=== PATIENT | female | born 1970 | race Hispanic/Latino ===

== ENCOUNTER 2016-06-15 04:42 | Observation (INO) | payer SELFPAY ==
[2016-06-15 06:12] LABS: Bilirubin,Urine NEG (Negative); Blood,Urine SM (Negative); Ketones,Urine TR mg/dL (Negative); Leukocyte Esterase,Urine NEG (Negative); Mucus,Urine FEW /HPF; Nitrite,Urine NEG (Negative); Protein,Urine <15 mg/dL mg/dL (Negative); Urobilinogen,Urine < 2.0 mg/dL (<2.0)
[2016-06-15 06:29] LABS: Alanine Aminotransferase 12 units/L (7-56); Albumin 3.9 g/dL (3.9-5); Albumin/Globulin Ratio 1.3 %; Alkaline Phosphatase 73 units/L (35-129); Bilirubin,Total 0.4 mg/dL (0.1-1.2); Blood Urea Nitrogen 10 mg/dL (7-17); Calcium 8.8 mg/dL (8.4-10.2); Carbon Dioxide 26 mmol/L (22-30); Chloride 102.3 mmol/L (98-107); Glucose 88 mg/dL (65-100); Lipase 30 units/L (13-60); Potassium 3.8 mmol/L (3.6-5.0); Sodium 141 mmol/L (137-145); Total Protein 6.9 g/dL (6.3-8.2)
[2016-06-15 06:30] LABS: Anion Gap 17 mmol/L; Basophils % (Auto) 0.4 % (0.0-1.8); Eosinophils % (Auto) 2.1 % (0.0-4.3); Hematocrit 32.4 % (30.3-42.9); Hemoglobin 10.1 gm/dl (10.1-14.3); Mean Corpuscular HGB Conc 31 % (30-34); Mean Corpuscular Hemoglobin 27 pg (28-32); Mean Corpuscular Volume 85 fl (79-97); Platelet Count 311 K/mm3 (140-440); Red Blood Count 3.82 M/mm3 (3.65-5.03); Red Cell Distribution Width 16.8 % (13.2-15.2); White Blood Count 6.9 K/mm3 (4.5-11.0)
[2016-06-15] MEDS ORDERED: NACL 0.9% 1000 ML 1,000 ML IV ONE (12:11)
[2016-06-15] MEDS ORDERED: MORPHINE IV ONE (12:11)
[2016-06-15] MEDS ORDERED: ZOFRAN IV ONE (12:11)
--- NOTE | 2016-06-15 12:12 | Emergency Department Report ---
ED Abdominal Pain HPI - General Chief Complaint: Abdominal Pain Stated Complaint: NAUSEA Time Seen by Provider: 06/15/16 12:04 Source: patient Mode of arrival: Ambulatory Limitations: No Limitations - History of Present Illness Initial Comments: this is a 45 y/o female previously unknown to me she has a past history of open abdominal surgery in 1992 for splenic cyst removal. also reports a history of chronic radicular pain, for which she sees dr mendez she complains of abdominal pain and swelling. The pain is sharp. It increases with palpation, and decreases with rest. Positive nausea, no vomiting. No irritative or obstructive urinary symptoms. No lower abdominal pain. Denies pelvic pain. Defecating normally. MD Complaint: abdominal pain Location: epigastric Radiation: back Severity: moderate Quality: aching Consistency: intermittent Improves With: rest Worsens With: movement Associated Symptoms: nausea - Related Data Previous Rx's Medication Instructions Recorded Last Taken Type Amlodipine Besylate [Norvasc] 2.5 mg PO DAILY #30 tab 10/02/15 Unknown Rx oxyCODONE /ACETAMINOPHEN [Percocet 1 tab PO Q6HR PRN #10 tablet 10/02/15 Unknown Rx 5/325] Allergies Allergy/AdvReac Type Severity Reaction Status Date / Time No Known Allergies Allergy Verified 10/02/15 08:27 ED Review of Systems ROS: Stated complaint: NAUSEA Other details as noted in HPI Constitutional: denies: malaise, weakness Eyes: denies: vision change ENT: denies: epistaxis Respiratory: denies: cough Gastrointestinal: abdominal pain, nausea Genitourinary: denies: urgency, dysuria, discharge Musculoskeletal: back pain Skin: denies: rash, lesions Neurological: denies: weakness Psychiatric: anxiety ED Past Medical Hx - Past Medical History Previous Medical History?: Yes Hx Hypertension: Yes (not on meds) Additional medical history: 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 tubes ligation - Social History Smoking Status: Former Smoker Substance Use Type: None, Prescribed - Medications Home Medications: Home Medications Medication Instructions Recorded Confirmed Last Taken Type Amlodipine Besylate [Norvasc] 2.5 mg PO DAILY #30 tab 10/02/15 Unknown Rx oxyCODONE /ACETAMINOPHEN [Percocet 1 tab PO Q6HR PRN #10 tablet 10/02/15 Unknown Rx 5/325] ED Physical Exam - General Limitations: No Limitations General appearance: alert, in no apparent distress - Head Head exam: Present: atraumatic, normocephalic - Eye Eye exam: Present: normal appearance - ENT ENT exam: Present: normal exam, normal orophraynx, mucous membranes moist, normal external ear exam - Neck Neck exam: Present: normal inspection, full ROM. Absent: tenderness, meningismus - Respiratory Respiratory exam: Present: normal lung sounds bilaterally. Absent: respiratory distress, wheezes, rales, rhonchi, stridor, chest wall tenderness - Cardiovascular Cardiovascular Exam: Present: regular rate, normal rhythm, normal heart sounds. Absent: bradycardia, tachycardia, irregular rhythm, systolic murmur, diastolic murmur, rubs, gallop - GI/Abdominal GI/Abdominal exam: Present: soft, tenderness, normal bowel sounds, hernia, other (there is a midline ventral hernia which is approximately 8 x 2 cm. It is nonreducible. It is tender. There is no lower abdominal pain, rebound, guarding or peritoneal signs.). Absent: distended, guarding, rebound, rigid - Extremities Exam Extremities exam: Present: normal inspection, full ROM, normal capillary refill. Absent: tenderness, pedal edema, joint swelling, calf tenderness - Back Exam Back exam: Present: normal inspection, full ROM. Absent: tenderness, CVA tenderness (R), CVA tenderness (L), muscle spasm, paraspinal tenderness, vertebral tenderness - Neurological Exam Neurological exam: Present: alert, oriented X3, normal gait, other (Extraocular movements intact. Tongue midline. No facial droop. Facial sensation intact to light touch in the V1, V2, V3 distribution bilaterally. 5 and 5 strength in 4 extremities.. Sensation is intact to light touch in 4 extremities.). Absent : motor sensory deficit - Psychiatric Psychiatric exam: Present: normal affect, normal mood - Skin Skin exam: Present: warm, dry, intact, normal color. Absent: rash ED Course Vital Signs 06/15/16 06/15/16 05:27 14:21 Temperature 97.9 F 98.6 F Pulse Rate 64 58 L Respiratory 20 16 Rate Blood Pressure 142/97 Blood Pressure 151/86 [Right] O2 Sat by Pulse 100 99 Oximetry - Reevaluation(s) Reevaluation #1: 06/15/16 14:37 Differential diagnosis: Incarcerated hernia, strangulated hernia Ct and plan: 45-year-old female with clinically incarcerated hernia, which is corroborated on CAT scan. She is afebrile with reassuring vital signs with the exception of slight hypertension. She has no lower abdominal pain, tenderness, rebound or guarding. The loculated fluid collection described and her CT scan I think is more incidental event causative of her symptoms. Case is discussed with the general surgeon, Dr. Tinajero, who is in the ER currently evaluating the patient, and will make further recommendations. Reevaluation #2: 06/15/16 14:44 Dr. Tinajero is going to take the patient to the operating room. He requested 2 g of Ancef. ED Medical Decision Making - Lab Data Result diagrams: 06/15/16 05:47 06/15/16 05:47 Vital Signs 06/15/16 06/15/16 05:27 14:21 Temperature 97.9 F 98.6 F Pulse Rate 64 58 L Respiratory 20 16 Rate Blood Pressure 142/97 Blood Pressure 151/86 [Right] O2 Sat by Pulse 100 99 Oximetry Lab Results 06/15/16 06/15/16 06/15/16 Range/Units 05:47 05:47 13:00 WBC 6.9 (4.5-11.0) K/mm3 RBC 3.82 (3.65-5.03) M/mm3 Hgb 10.1 (10.1-14.3) gm/dl Hct 32.4 (30.3-42.9) % MCV 85 (79-97) fl MCH 27 L (28-32) pg MCHC 31 (30-34) % RDW 16.8 H (13.2-15.2) % Plt Count 311 (140-440) K/mm3 Lymph % (Auto) 18.4 (13.4-35.0) % Bledsoe % (Auto) 9.1 H (0.0-7.3) % Eos % (Auto) 2.1 (0.0-4.3) % Baso % (Auto) 0.4 (0.0-1.8) % Lymph # 1.3 (1.2-5.4) K/mm3 Bledsoe # 0.6 (0.0-0.8) K/mm3 Eos # 0.1 (0.0-0.4) K/mm3 Baso # 0.0 (0.0-0.1) K/mm3 Seg Neutrophils % 70.0 (40.0-70.0) % Seg Neutrophils # 4.8 (1.8-7.7) K/mm3 Sodium 141 (137-145) mmol/L Potassium 3.8 (3.6-5.0) mmol/L Chloride 102.3 (98-107) mmol/L Carbon Dioxide 26 (22-30) mmol/L Anion Gap 17 mmol/L BUN 10 (7-17) mg/dL Creatinine 0.5 L (0.7-1.2) mg/dL Estimated GFR > 60 ml/min BUN/Creatinine Ratio 20.00 % Glucose 88 (65-100) mg/dL Lactic Acid 0.5 L (0.7-2.0) mmol/L Calcium 8.8 (8.4-10.2) mg/dL Total Bilirubin 0.4 (0.1-1.2) mg/dL AST 21 (5-40) units/L ALT 12 (7-56) units/L Alkaline Phosphatase 73 (35-129) units/L Total Protein 6.9 (6.3-8.2) g/dL Albumin 3.9 (3.9-5) g/dL Albumin/Globulin Ratio 1.3 % Lipase 30 (13-60) units/L Urine Color (Yellow) Urine Turbidity (Clear) Urine pH (5.0-7.0) Ur Specific [place] (1.003-1.030) Urine Protein (Negative) mg/dL Urine Glucose (UA) (Negative) mg/dL Urine Ketones (Negative) mg/dL Urine Blood (Negative) Urine Nitrite (Negative) Urine Bilirubin (Negative) Urine Urobilinogen (<2.0) mg/dL Ur Leukocyte Esterase (Negative) Urine WBC (Auto) (0.0-6.0) /HPF Urine RBC (Auto) (0.0-6.0) /HPF U Epithel Cells (Auto) (0-13.0) /HPF Urine Mucus /HPF 06/15/16 Range/Units Unknown WBC (4.5-11.0) K/mm3 RBC (3.65-5.03) M/mm3 Hgb (10.1-14.3) gm/dl Hct (30.3-42.9) % MCV (79-97) fl MCH (28-32) pg MCHC (30-34) % RDW (13.2-15.2) % Plt Count (140-440) K/mm3 Lymph % (Auto) (13.4-35.0) % Bledsoe % (Auto) (0.0-7.3) % Eos % (Auto) (0.0-4.3) % Baso % (Auto) (0.0-1.8) % Lymph # (1.2-5.4) K/mm3 Bledsoe # (0.0-0.8) K/mm3 Eos # (0.0-0.4) K/mm3 Baso # (0.0-0.1) K/mm3 Seg Neutrophils % (40.0-70.0) % Seg Neutrophils # (1.8-7.7) K/mm3 Sodium (137-145) mmol/L Potassium (3.6-5.0) mmol/L Chloride (98-107) mmol/L Carbon Dioxide (22-30) mmol/L Anion Gap mmol/L BUN (7-17) mg/dL Creatinine (0.7-1.2) mg/dL Estimated GFR ml/min BUN/Creatinine Ratio % Glucose (65-100) mg/dL Lactic Acid (0.7-2.0) mmol/L Calcium (8.4-10.2) mg/dL Total Bilirubin (0.1-1.2) mg/dL AST (5-40) units/L ALT (7-56) units/L Alkaline Phosphatase (35-129) units/L Total Protein (6.3-8.2) g/dL Albumin (3.9-5) g/dL Albumin/Globulin Ratio % Lipase (13-60) units/L Urine Color Yellow (Yellow) Urine Turbidity Clear (Clear) Urine pH 5.0 (5.0-7.0) Ur Specific [place] 1.014 (1.003-1.030) Urine Protein <15 mg/dl (Negative) mg/dL Urine Glucose (UA) Neg (Negative) mg/dL Urine Ketones Tr (Negative) mg/dL Urine Blood Sm (Negative) Urine Nitrite Neg (Negative) Urine Bilirubin Neg (Negative) Urine Urobilinogen < 2.0 (<2.0) mg/dL Ur Leukocyte Esterase Neg (Negative) Urine WBC (Auto) 1.0 (0.0-6.0) /HPF Urine RBC (Auto) 3.0 (0.0-6.0) /HPF U Epithel Cells (Auto) 1.0 (0-13.0) /HPF Urine Mucus Few /HPF - Radiology Data Radiology results: report reviewed, image reviewed CT scan of the abdomen and pelvis with IV contrast: There is no enlarged liver. Normal sized spleen with splenule in the adjacent region. Normal adrenals, kidney parenchyma and bladder. There is a loculated fluid collection probably a cyst in the left adnexa measuring 8.4 b 5.3 cm. There is no free peritoneal fluid there is no evidence of adenopathy. No evidence of diverticulitis or appendicitis. There is a ventral hernia noted containing omentum and not bowel. The narrow neck of the hernia is probably suggestive of incarcerated hernia. Y Critical care attestation.: If time is entered above; I have spent that time in minutes in the direct care of this critically ill patient, excluding procedure time. ED Disposition Clinical Impression: Incarcerated hernia Disposition: OP ADMITTED IP TO THIS HOSP Is pt being admited?: Yes Condition: Good Instructions: Abdominal Pain (ED)
[2016-06-15] MEDS ORDERED: NACL ONE (13:28)
--- NOTE | 2016-06-15 14:05 | Cat Scan Report ---
CT scan of abdomen and pelvis with IV contrast: History: Abdominal pain, incarcerated hernia. Findings: Normal lung bases. No pleural pericardial effusion. Enlarged liver measuring 24 cm in vertical diameter. Normal pancreas and gallbladder. Normal size spleen with splenule in the adjacent region. Normal adrenals kidney parenchyma and bladder. There is loculated fluid collection probably a cyst in the left adnexa measuring 8.4 cm x 5.3 cm. The No free duct peritoneal fluid or. No evidence of adenopathy. Gaseous colon with stool in colon. No evidence of appendicitis or diverticulitis. There is ventral hernia noted containing omentum and not bowel. Narrow neck of the hernia probably suggestive for incarcerated hernia.. The hernia is approximately 10 cm superior to the umbilicus. Impression: Ventral hernia containing omentum probably incarcerated. The Large left adnexal fluid collection probably ovarian cyst.
--- NOTE | 2016-06-15 15:14 | Anesthesia Consultation ---
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 Incarcerated hernia at the incision site
--- NOTE | 2016-06-15 15:15 | Anesthesia Day of Surgery ---
Anesthesia Day of Surgery - Day of Surgery Patient Examined: Yes Patient H&P Reviewed: Yes Patient is NPO: No (had contrast PO for CT study )
[2016-06-15] MEDS ORDERED: DIPRIVAN 10 MG/ML IV ONE (15:19)
[2016-06-15] MEDS ORDERED: DILAUDID ONE (15:19)
[2016-06-15] MEDS ORDERED: XYLOCAINE MPF 2% ONE (15:20)
[2016-06-15] MEDS ORDERED: LACTATED RINGERS 1,000 ML ONE (15:25)
--- NOTE | 2016-06-15 15:33 | Admit Criteria Form ---
Admission Criteria Documentation: ABDOMINAL PAIN Clinical Indications for Admission to Inpatient Care (Place 'X' for any and all applicable criteria): Admission is indicated for ANY ONE of the following(1)(2)(3)(4)(5): [X ]I. Inpatient admission required rather than observation care (Also use Abdominal Pain: Observation Care, as appropriate) because of ANY ONE of the following: [X ]a) Severe pain requiring acute inpatient management [ ]b) Identification of etiology/finding that requires inpatient care (eg, aortic dissection, free air) [ ]c) Absent bowel sounds with complete ileus(6) [ ]d) Suspected toxic megacolon [ ]e) Severe electrolyte abnormalities requiring inpatient care [ ]f) High fever or infection requiring inpatient admission as indicated by ANY ONE of following(7)(8): [ ] i) Appropriate outpatient or observational care antimicrobial treatment unavailable, not effective, or not feasible [ ] ii) Documented bacteremia [ ] iii) Temperature > 104.9 degrees F (oral) [ ] iv) T >103.1 F (oral) or < 96.8 F(rectal) that does not respond to all emergency treatment measures [ ]g) Signs of intestinal obstruction [B] [ ]h) Hemodynamic instability [ ]i) IV fluid to replace significant ongoing losses (greater than 3 L/m2 per day) (12)(13) [ ]j) Percutaneous or open drainage (eg, abscess, biliary tract ) procedures [ ]k) Parenteral nutrition regimen that must be implemented on inpatient basis [ ]l) Other condition,treatment or monitoring requiring inpatient admission. [ ]II. Peritoneal signs present [ X]III. Surgery needed that cannot be performed on an ambulatory basis. [ ]IV. Evaluation requires patient to not eat or drink for extended period ( eg, more than 24 hours). [ ]V. Contraindications and/or Inappropriate clinical situations for Observational Care in patients with abdominal pain, when ANY ONE of the following is required: [ ]a) Thorough evaluation is required to prevent catastrophic events due to delays in diagnosing (e.g.Mesenteric ischemia) 1,3 [ ]b) Patient with severe pathology or with chronic symptoms unlikely to improve in the ED stay (3) [ ]. General contraindications and/or Inappropriate clinical situations for Observational Care in patients with abdominal pain, when ANY ONE of the following is required: [ ]a) Prediction of prolongation of LOS based on ANY ONE of the following may be considered as a contraindication for observational care 2, 3, 4, 5, 6, 7, 8, 9, 10, 11 [ ]i) Age > 65 yrs. [ ]ii) Patient arriving by ambulance [ ]iii) Patient with high acuity [ ]iv) Patient requiring vital sign monitoring [ ]v) Patient on IV medication [ ]b) Systolic blood pressures 180mmHg 3,12 [ ]c) Patient with altered mental status including delirium and other alteration of consciousness, (3) [ ]d) Patient whose discharge disposition will be to a penitentiary home or rehabilitation home should not be managed in Emergency Department Observation Unit. CMS rule requires 3 days hospital stay before such placement.3,13 [ ]e) Patient with failure to thrive due to broad array of etiologies 3,16,17 [ ]f) Inability to ambulate 3,14 Extended stay beyond goal length of stay may be needed for(2)(3): [ ]a) Persistent abdominal pain with suspected intra-abdominal process [ ]b) Diagnosed condition requiring continued stay (e.g., pancreatitis, complicated diverticulitis) [ ]c) Surgery (e.g., colectomy) The original [facility] content created by [employer] has been revised. The portions of the content which have been revised are identified through the use of italic text or in bold, and [facility] has neither reviewed nor approved the modified material.All other unmodified content is copyright [facility]. Please see references footnoted in the original [facility] edition 2016 Admission Criteria Met: Yes
[2016-06-15] MEDS ORDERED: ceFAZolin 2 GM in NACL 0.9% 100 ML IV ONE (15:45)
[2016-06-15] MEDS ORDERED: ANCEF/STERILE WATER 2 GM/20 ML 20 ML IV ONE (15:45)
[2016-06-15] MEDS ORDERED: PEPCID IV NR (16:00)
[2016-06-15] MEDS ORDERED: LACTATED RINGERS 1,000 ML IV SCH (16:00)
[2016-06-15] MEDS ORDERED: VERSED IV NR (16:00)
[2016-06-15] MEDS ORDERED: NACL 0.9% IR ONE (16:11)
--- NOTE | 2016-06-15 16:13 | History and Physical Report ---
HISTORY OF PRESENT ILLNESS: This patient was seen in the ER this morning. She is a 45-year-old white female who has been having severe pain to the epigastrium, nausea and vomiting of about six week's duration, but it has been a very bad in the last 2 days. She gives a history of a huge spleen that was taken out many years back and she told me that it was about 7 pounds with a huge cyst in the area. She has been doing fairly well. She has been having that pain in the epigastrium for quite a while now. It is becoming much worse and this was seen on CAT scan today with incarcerated hernia. The defect to me is about 4 x 4 cm, located just in the midepigastric area. She had nausea. She had vomiting. She is not allergic to any medicines. PHYSICAL EXAMINATION: GENERAL: A well preserved morbidly obese white female. She is in no distress. She is in pain, however, to the area. HEAD AND NECK: Negative. CHEST: Clear. HEART: Sounds normal. BREASTS: Symmetric. No evidence of specific masses. ABDOMEN: Protuberant, soft, benign; however in the midepigastric area, there is a firm mass that to me is about 10 x 10 cm, located right in the mid epigastric aspect. Severely tender. EXTREMITIES: No edema. IMPRESSION: Incarcerated epigastric hernia seen on the CAT scan Dr. Petersen our radiologist. JOB# [id number] YIFAN/ED
[2016-06-15] MEDS ORDERED: DECADRON ONE (16:27)
[2016-06-15] MEDS ORDERED: ZOFRAN ONE (16:27)
[2016-06-15] MEDS: DILAUDID IV PRN ×2 (16:50→17:08)
[2016-06-15] MEDS ORDERED: D5W/0.45% NACL/KCL 20 MEQ 1,000 ML IV SCH (17:00)
--- NOTE | 2016-06-15 17:37 | Post Anesthesia Evaluation ---
- Post Anesthesia Evaluation Patient Participated: Yes Airway Patent: Yes Stable Respiratory Function: Yes Nausea/Vomiting: No Temp > 96.8F: Yes Pain Manageable: Yes Adequeate Hydration: Yes Anesthesia Complications: No Block Receding Appropriately: Not Applicable Patient on Ventilator: No
--- NOTE | 2016-06-15 18:39 | Operative Report ---
PREOPERATIVE DIAGNOSIS: Incarcerated epigastric hernia. 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 SURGERY: Exploration of the epigastric area with partial omentectomy for incarcerated omentum and repair of hernia. We did not use a graft there because the area is severely edematous. ANESTHESIA: General. BLOOD LOSS: Minimal. FINDINGS: The patient had a defect in the midepigastric area that to me measured about 3 x 3 x 3 cm with omentum stuck into it. I was able to dissect the omentum completely. I had to resect a portion of it and the rest of the tissue was delivered within the abdominal cavity. DESCRIPTION OF PROCEDURE: With the patient in supine position, prepped and draped in usual fashion. I made a midline incision over the mass in the midepigastrium deep subcutaneous tissue. I was able to reach the mass. The mass was mainly omentum. This was dissected completely free. I had to suture ligate using for that purpose 2-0 Ethibond and at that point, we had good hemostasis. Then, the fascia was approximated using 0 Ethibond interrupted [id number] and subcutaneous tissues using 2-0 Vicryl and skin closed with michelle. The patient was then transferred to the recovery room in good condition. We will plan to have her go home tomorrow, already provided her prescription for Vicodin. I did indicate to her that she would need to be off work for a good 10 to 15 days. DIET: Ad-allie. JOB# [id number] YIFAN/ED
[2016-06-15] MEDS: MORPHINE IV PRN (20:01)
[2016-06-15] MEDS ORDERED: PEPCID IV SCH (22:00)
[2016-06-15] MEDS ORDERED: ANCEF/NS 1 GM/50 ML 50 ML IV SCH (23:30)
[2016-06-16] MEDS: MORPHINE IV PRN (00:10)
[2016-06-16 16:35] VITALS: BP 139/60
== END 2016-06-16 14:45 | disposition home or self-care (01) ==
LOC: OR 04:42 → ED 04:42 → EDSTATUS 15:35 → 2B-SURG 16:46
PROVIDERS: ADMIT Surgery; ATTEND Surgery
DX: K43.6 Other and unspecified ventral hernia with obstruction, without gangrene (principal); Z90.81 Acquired absence of spleen
CPT/HCPCS: 36415; 49653; 74177; 80053; 81001; 81025; 82140; 83690; 85025; 88305; 96365; 96375; 96376; 99285; G0378; J0690; J1100; J1170; J2250; J2270; J2405; J2704; J7030; J7120; Q9967

== ENCOUNTER 2016-10-20 10:57 | Emergency (ER) | payer SELFPAY ==
--- NOTE | 2016-10-20 11:53 | Emergency Department Report ---
Chief Complaint: Abdominal Pain Stated Complaint: RT SIDE PAIN Time Seen by Provider: 10/20/16 11:46 - HPI History of Present Illness: PT c/o RUQ abd pain, gradual onset, worse this morning. PT states her younger sister was just dx with "gallbladder sludge" hx of hernia repair 06-16-16 - ROS Review of Systems: + abd pain worse after eating + nausea - sob - cp - Exam Physical Exam: PT looks well, non toxic abd soft, RUQ ttp MSE screening note: Focused history and physical exam performed. Due to findings the following was ordered: labs, us ED Disposition for MSE Condition: Stable
[2016-10-20 12:26] LABS: Alanine Aminotransferase 8 units/L (7-56); Albumin/Globulin Ratio 1.3 %; Alkaline Phosphatase 79 units/L (35-129); Anion Gap 17 mmol/L; Basophils % (Auto) 0.3 % (0.0-1.8); Blood Urea Nitrogen 11 mg/dL (7-17); Calcium 9.4 mg/dL (8.4-10.2); Carbon Dioxide 24 mmol/L (22-30); Chloride 101.4 mmol/L (98-107); Eosinophils % (Auto) 0.7 % (0.0-4.3); Glucose 87 mg/dL (65-100); Hemoglobin 10.9 gm/dl (10.1-14.3); Lipase 26 units/L (13-60); Mean Corpuscular HGB Conc 32 % (30-34); Mean Corpuscular Hemoglobin 27 pg (28-32); Mean Corpuscular Volume 85 fl (79-97); Platelet Count 293 K/mm3 (140-440); Potassium 3.8 mmol/L (3.6-5.0); Red Blood Count 4.02 M/mm3 (3.65-5.03); Red Cell Distribution Width 19.3 % (13.2-15.2); Sodium 139 mmol/L (137-145); White Blood Count 10.3 K/mm3 (4.5-11.0)
--- NOTE | 2016-10-20 12:51 | Ultrasound Report ---
RIGHT UPPER QUADRANT ULTRASOUND: HISTORY: Right upper quadrant abdominal pain. Technique: Transabdominal ultrasound imaging with Doppler interrogation. FINDINGS: A large shadowing gallstone measuring up to 2 cm is identified within the gallbladder. No evidence for gallbladder distention, wall thickening or surrounding fluid. The CBD measures 4 mm. Images of the liver parenchyma, pancreas, right kidney and aorta are within normal limits. No perihepatic ascites. IMPRESSION: Large gallstone. No evidence for acute cholecystitis.
[2016-10-20 13:13] LABS: Bilirubin,Urine NEG (Negative); Blood,Urine NEG (Negative); Ketones,Urine NEG (Negative); Leukocyte Esterase,Urine NEG (Negative); Mucus,Urine FEW /HPF; Nitrite,Urine NEG (Negative); Protein,Urine <15 mg/dL mg/dL (Negative); RBC,Urine < 1.0 /HPF (0.0-6.0); Urobilinogen,Urine < 2.0 mg/dL (<2.0); WBC,Urine < 1.0 /HPF (0.0-6.0)
[2016-10-21] MEDS ORDERED: ZOFRAN ODT PO ONE (04:06)
[2016-10-21] MEDS ORDERED: MORPHINE IM ONE (04:06)
--- NOTE | 2016-10-21 04:43 | Emergency Department Report ---
ED Abdominal Pain HPI - General Chief Complaint: Abdominal Pain Stated Complaint: RT SIDE PAIN Time Seen by Provider: 10/20/16 11:46 Source: patient Mode of arrival: Ambulatory Limitations: No Limitations - History of Present Illness Initial Comments: 46 year old female with past medical history of high blood pressure presenting to the emergency room complaining of right upper quadrant abdominal pain. Patient states she noticed pain about a week ago however has been increasing intensity. Pain is nonradiating. Pain is worse with food, improves when she is not eating. Pertinent negatives: Fever/chills, chest pain, vomiting, diarrhea, bloody stools. MD Complaint: abdominal pain -: Gradual Location: RUQ Radiation: none Migration to: no migration Severity scale (0 -10): 6 Consistency: intermittent Improves With: nothing Worsens With: eating Associated Symptoms: nausea. denies: vomiting, diarrhea, constipation, hematemesis - Related Data Previous Rx's Medication Instructions Recorded Last Taken Type oxyCODONE /ACETAMINOPHEN [Percocet 1 tab PO Q6HR PRN #10 tablet 10/02/15 Unknown Rx 5/325] Amlodipine Besylate [Norvasc] 2.5 mg PO DAILY #30 tab 10/21/16 Unknown Rx Ibuprofen [Motrin 800 MG tab] 800 mg PO Q8HR PRN #30 tablet 10/21/16 Unknown Rx Ondansetron [Zofran Odt] 4 mg PO Q6HR #20 tab.rapdis 10/21/16 Unknown Rx oxyCODONE /ACETAMINOPHEN [Percocet 1 tab PO Q4HR #20 tab 10/21/16 Unknown Rx 5/325] Allergies Allergy/AdvReac Type Severity Reaction Status Date / Time No Known Allergies Allergy Verified 10/20/16 11:46 ED Review of Systems ROS: Stated complaint: RT SIDE PAIN Other details as noted in HPI Constitutional: denies: chills, fever Eyes: denies: eye pain, eye discharge, vision change ENT: denies: ear pain, throat pain Respiratory: denies: cough, shortness of breath, wheezing Cardiovascular: denies: chest pain, palpitations Endocrine: no symptoms reported Gastrointestinal: abdominal pain Genitourinary: denies: urgency, dysuria, discharge Musculoskeletal: denies: back pain, joint swelling, arthralgia Skin: denies: rash, lesions Neurological: denies: headache, weakness, paresthesias Psychiatric: denies: anxiety, depression Hematological/Lymphatic: denies: easy bleeding, easy bruising ED Past Medical Hx - Past Medical History Hx Hypertension: Yes Additional medical history: 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 tubal ligation. hernia repair - Social History Smoking Status: Former Smoker Substance Use Type: Alcohol, Prescribed - Medications Home Medications: Home Medications Medication Instructions Recorded Confirmed Last Taken Type oxyCODONE /ACETAMINOPHEN [Percocet 1 tab PO Q6HR PRN #10 tablet 10/02/15 Unknown Rx 5/325] Amlodipine Besylate [Norvasc] 2.5 mg PO DAILY #30 tab 10/21/16 Unknown Rx Ibuprofen [Motrin 800 MG tab] 800 mg PO Q8HR PRN #30 tablet 10/21/16 Unknown Rx Ondansetron [Zofran Odt] 4 mg PO Q6HR #20 tab.rapdis 10/21/16 Unknown Rx oxyCODONE /ACETAMINOPHEN [Percocet 1 tab PO Q4HR #20 tab 10/21/16 Unknown Rx 5/325] ED Physical Exam - General Limitations: No Limitations General appearance: alert, in no apparent distress - Head Head exam: Present: atraumatic, normocephalic - Eye Eye exam: Present: normal appearance - ENT ENT exam: Present: mucous membranes moist - Neck Neck exam: Present: normal inspection - Respiratory Respiratory exam: Present: normal lung sounds bilaterally. Absent: respiratory distress - Cardiovascular Cardiovascular Exam: Present: regular rate, normal rhythm. Absent: systolic murmur, diastolic murmur, rubs, gallop - GI/Abdominal GI/Abdominal exam: Present: soft, normal bowel sounds. Absent: distended, tenderness, guarding, rebound - Extremities Exam Extremities exam: Present: normal inspection - Back Exam Back exam: Present: normal inspection - Neurological Exam Neurological exam: Present: alert, oriented X3 - Psychiatric Psychiatric exam: Present: normal affect, normal mood - Skin Skin exam: Present: warm, dry, intact, normal color. Absent: rash ED Course Vital Signs 10/20/16 10/20/16 10/21/16 11:49 19:43 02:22 Temperature 98.1 F 98.9 F Pulse Rate 56 L 61 59 L Respiratory 17 12 13 Rate Blood Pressure 178/106 154/101 O2 Sat by Pulse 100 99 100 Oximetry 10/21/16 10/21/16 10/21/16 02:30 03:00 03:30 Temperature Pulse Rate 53 L 54 L 61 Respiratory 18 18 17 Rate Blood Pressure 163/82 139/84 131/89 O2 Sat by Pulse 100 99 100 Oximetry ED Medical Decision Making - Lab Data Result diagrams: 10/20/16 11:58 10/20/16 11:58 - Medical Decision Making 46 year old female with past medical history of hypertension presenting to the emergency department complaining of abdominal pain. Pain likely secondary to gallstones. Patient states symptoms have improved while in the ER and she is stable to DC home. Repeat abdominal exam: soft nontender, patient tolerating by mouth liquids, and well-appearing. I have low suspicion for: UTI, appendicitis, small bowel obstruction Critical Care Time: No Critical care attestation.: If time is entered above; I have spent that time in minutes in the direct care of this critically ill patient, excluding procedure time. ED Disposition Clinical Impression: Gallstones, Hypertension Disposition: DC-01 TO HOME OR SELFCARE Is pt being admited?: No Does the pt Need Aspirin: No Condition: Stable Instructions: Abdominal Pain (ED), Hypertension (ED) Additional Instructions: gallstones Prescriptions: Amlodipine Besylate [Norvasc] 2.5 mg PO DAILY #30 tab Ibuprofen [Motrin 800 MG tab] 800 mg PO Q8HR PRN #30 tablet PRN Reason: Pain , Severe (7-10) Ondansetron [Zofran Odt] 4 mg PO Q6HR #20 tab.rapdis oxyCODONE /ACETAMINOPHEN [Percocet 5/325] 1 tab PO Q4HR #20 tab Referrals: DORIE MARIE MD [Primary Care Provider] - 3-5 Days AMILCAR ELZIABETH MD [Staff Physician] - 3-5 Days Time of Disposition: 04:50
[2016-10-21] MEDS ORDERED: PERCOCET 5/325 PO ONE (05:02)
[2016-10-21 05:20] VITALS: BP 157/94
== END 2016-10-21 05:00 | disposition home or self-care (01) ==
LOC: ED 10:57
DX: K80.80 Other cholelithiasis without obstruction (principal); I10 Essential (primary) hypertension; Z87.891 Personal history of nicotine dependence
CPT/HCPCS: 36415; 76705; 80053; 81001; 83690; 84703; 85025; 96372; 99284; J2270; Q0162

== ENCOUNTER 2017-01-18 15:53 | Emergency (ER) | payer SELFPAY ==
[2017-01-18 16:27] VITALS: BP 159/95
--- NOTE | 2017-01-18 16:29 | Emergency Department Report ---
Chief Complaint: Abdominal Pain Stated Complaint: GALLBLADDER Time Seen by Provider: 01/18/17 16:26 - HPI History of Present Illness: PT c/o R upper quad abd pain x 4 days, hx of gallstones - ROS Review of Systems: decrease po intake - vomiting + RUQ tenderness - Exam Vital Signs: Vital Signs 01/18/17 16:24 Temperature 98.4 F Pulse Rate 62 Respiratory 16 Rate Blood Pressure 159/95 O2 Sat by Pulse 100 Oximetry Physical Exam: PT looks well, non toxic abd soft mild RUQ tenderness MSE screening note: Focused history and physical exam performed. Due to findings the following was ordered: ED Disposition for MSE Condition: Stable Instructions: Abdominal Pain (ED)
[2017-01-18 16:42] LABS: Basophils % (Auto) 0.4 % (0.0-1.8); Eosinophils % (Auto) 0.6 % (0.0-4.3); Hematocrit 37.1 % (30.3-42.9); Hemoglobin 11.8 gm/dl (10.1-14.3); Mean Corpuscular HGB Conc 32 % (30-34); Mean Corpuscular Hemoglobin 29 pg (28-32); Mean Corpuscular Volume 91 fl (79-97); Platelet Count 265 K/mm3 (140-440); Red Blood Count 4.05 M/mm3 (3.65-5.03); Red Cell Distribution Width 17.7 % (13.2-15.2); White Blood Count 9.8 K/mm3 (4.5-11.0)
[2017-01-18 16:57] LABS: Alanine Aminotransferase 9 units/L (7-56); Albumin 4.2 g/dL (3.9-5); Albumin/Globulin Ratio 1.3 %; Alkaline Phosphatase 86 units/L (35-129); Anion Gap 19 mmol/L; Blood Urea Nitrogen 11 mg/dL (7-17); Calcium 9.6 mg/dL (8.4-10.2); Carbon Dioxide 24 mmol/L (22-30); Chloride 100.7 mmol/L (98-107); Glucose 92 mg/dL (65-100); Lipase 35 units/L (13-60); Potassium 3.7 mmol/L (3.6-5.0); Sodium 140 mmol/L (137-145); Total Protein 7.4 g/dL (6.3-8.2)
[2017-01-18 16:57] LABS: Bacteria,Urine 1+ /HPF (Negative); Bilirubin,Urine NEG (Negative); Blood,Urine NEG (Negative); Ketones,Urine NEG (Negative); Leukocyte Esterase,Urine NEG (Negative); Mucus,Urine FEW /HPF; Nitrite,Urine NEG (Negative); Protein,Urine <15 mg/dL mg/dL (Negative); Urobilinogen,Urine < 2.0 mg/dL (<2.0); WBC,Urine < 1.0 /HPF (0.0-6.0)
== END 2017-01-18 16:27 | disposition left against medical advice (07) ==
LOC: ED 15:53
DX: R10.11 Right upper quadrant pain (principal); Z53.21 Procedure and treatment not carried out due to patient leaving prior to being seen by health care provider
CPT/HCPCS: 36415; 80053; 81001; 83690; 85025

== ENCOUNTER 2017-04-08 10:58 | Emergency (ER) | payer SELFPAY ==
[2017-04-08 11:49] LABS: Basophils % (Auto) 0.4 % (0.0-1.8); Eosinophils % (Auto) 0.4 % (0.0-4.3); Hemoglobin 12.5 gm/dl (10.1-14.3); Mean Corpuscular HGB Conc 31 % (30-34); Mean Corpuscular Hemoglobin 30 pg (28-32); Mean Corpuscular Volume 94 fl (79-97); Platelet Count 317 K/mm3 (140-440); Red Blood Count 4.25 M/mm3 (3.65-5.03); Red Cell Distribution Width 16.1 % (13.2-15.2); White Blood Count 9.2 K/mm3 (4.5-11.0)
[2017-04-08 12:07] LABS: Alanine Aminotransferase 10 units/L (7-56); Albumin 4.1 g/dL (3.9-5); Albumin/Globulin Ratio 1.3 %; Alkaline Phosphatase 87 units/L (35-129); Anion Gap 19 mmol/L; BUN/Creatinine Ratio 23; Blood Urea Nitrogen 14 mg/dL (7-17); Calcium 9.2 mg/dL (8.4-10.2); Carbon Dioxide 23 mmol/L (22-30); Chloride 101.3 mmol/L (98-107); Glucose 90 mg/dL (65-100); Lipase 62 units/L (13-60); Potassium 3.6 mmol/L (3.6-5.0); Sodium 140 mmol/L (137-145); Total Protein 7.2 g/dL (6.3-8.2)
[2017-04-08 12:16] LABS: Bacteria,Urine 1+ /HPF (Negative); Bilirubin,Urine MOD (Negative); Blood,Urine NEG (Negative); Ketones,Urine TR mg/dL (Negative); Leukocyte Esterase,Urine NEG (Negative); Mucus,Urine 2+ /HPF; Nitrite,Urine NEG (Negative); Protein,Urine <15 mg/dL mg/dL (Negative); Urobilinogen,Urine < 2.0 mg/dL (<2.0)
[2017-04-08] MEDS ORDERED: SUBLIMAZE IV PRN (17:40)
[2017-04-08] MEDS ORDERED: BENTYL IM ONE (17:40)
[2017-04-08] MEDS ORDERED: ZOFRAN IV ONE (17:40)
[2017-04-08] MEDS ORDERED: TORADOL IV ONE (17:41)
--- NOTE | 2017-04-08 17:46 | Emergency Department Report ---
HPI - General Chief Complaint: Abdominal Pain Time Seen by Provider: 04/08/17 17:30 - HPI HPI: Room 10 The patient is a 46-year-old female presenting with a chief complaint of abdominal pain. Patient states she has a known history of cholelithiasis states yesterday during she developed some nausea despite attempting to choose her dishes carefully. The patient states this morning at 07:00 after eating hash brown she developed pain and right upper quadrant felt like her gallbladder. Patient states pain has been constant and aching in nature. Patient continues to have nausea vomiting. Patient states she has some diarrhea yesterday. Patient denies any history of fever Location: Abdomen Duration: Constant since 07:00 Quality: Sharp Severity:12/23 Modifying factors: [see above] Context: [see above] Mode of transportation: The patient drove herself to the emergency department and there are no visit is currently present. The patient states she will call her who can be here in approximately [address] her home if she is administered narcotic pain medication ED Past Medical Hx - Past Medical History Hx Hypertension: Yes Additional medical history: Gallstones - Surgical History Additional Surgical History: splenectomy. tubal ligation. hernia repair - Family History Family history: no significant - Social History Smoking Status: Never Smoker Substance Use Type: None (denies illicit drug use), Alcohol (occasional) - Medications Home Medications: Home Medications Medication Instructions Recorded Confirmed Last Taken Type oxyCODONE /ACETAMINOPHEN [Percocet 1 tab PO Q6HR PRN #10 tablet 10/02/15 Unknown Rx 5/325] Amlodipine Besylate [Norvasc] 2.5 mg PO DAILY #30 tab 10/21/16 Unknown Rx Ibuprofen [Motrin 800 MG tab] 800 mg PO Q8HR PRN #30 tablet 10/21/16 Unknown Rx Ondansetron [Zofran Odt] 4 mg PO Q6HR #20 tab.rapdis 10/21/16 Unknown Rx oxyCODONE /ACETAMINOPHEN [Percocet 1 tab PO Q4HR #20 tab 10/21/16 Unknown Rx 5/325] Dicyclomine [Bentyl] 20 mg PO QID #30 tablet 04/08/17 Unknown Rx HYDROcodone/APAP 5-325 [[place] 1 - 2 each PO Q6HR PRN #14 tablet 04/08/17 Unknown Rx 5/325] ED Review of Systems ROS: Stated complaint: VOMITING Other details as noted in HPI Constitutional: denies: fever Gastrointestinal: abdominal pain, nausea, vomiting, diarrhea Physical Exam - Physical Exam Vital Signs: Vital Signs 04/08/17 11:08 Temperature 97.8 F Pulse Rate 61 Respiratory 18 Rate Blood Pressure 172/102 O2 Sat by Pulse 99 Oximetry Physical Exam: GENERAL: The patient is well-developed well-nourished female lying on stretcher not appearing to be in acute distress. [] HEENT: Normocephalic. Atraumatic. Extraocular motions are intact. Patient has moist mucous membranes. NECK: Supple. Trachea midline CHEST/LUNGS: Clear to auscultation. There is no respiratory distress noted. HEART/CARDIOVASCULAR: Regular. There is no tachycardia. There is no gallop rub or murmur. ABDOMEN: Abdomen is soft, with tenderness to palpation in the right upper quadrant and right lower quadrant. There is no rebound or guarding. Patient has normal bowel sounds. There is no abdominal distention. SKIN: There is no rash. There is no edema. There is no diaphoresis. NEURO: The patient is awake, alert, and oriented. The patient is cooperative. The patient has normal speech MUSCULOSKELETAL: There is no evidence of acute injury. ED Course Vital Signs 04/08/17 11:08 Temperature 97.8 F Pulse Rate 61 Respiratory 18 Rate Blood Pressure 172/102 O2 Sat by Pulse 99 Oximetry ED Medical Decision Making - Lab Data Result diagrams: 04/08/17 11:15 04/08/17 11:15 Laboratory Tests 04/08/17 04/08/17 04/08/17 11:15 11:15 11:31 WBC 9.2 RBC 4.25 Hgb 12.5 Hct 40.0 MCV 94 MCH 30 MCHC 31 RDW 16.1 H Plt Count 317 Lymph % (Auto) 25.8 [place] % (Auto) 8.6 H Eos % (Auto) 0.4 Baso % (Auto) 0.4 Lymph # 2.4 [place] # 0.8 Eos # 0.0 Baso # 0.0 Seg Neutrophils % 64.8 Seg Neutrophils # 6.0 Sodium 140 Potassium 3.6 Chloride 101.3 Carbon Dioxide 23 Anion Gap 19 BUN 14 Creatinine 0.6 L Estimated GFR > 60 BUN/Creatinine Ratio 23 Glucose 90 Calcium 9.2 Total Bilirubin 0.30 AST 16 ALT 10 Alkaline Phosphatase 87 Total Protein 7.2 Albumin 4.1 Albumin/Globulin Ratio 1.3 Lipase 62 H Urine Color Yellow Urine Turbidity Clear Urine pH 5.0 Ur Specific [place] 1.049 H Urine Protein <15 mg/dl Urine Glucose (UA) Neg Urine Ketones Tr Urine Blood Neg Urine Nitrite Neg Urine Bilirubin Mod Urine Ictotest Negative Urine Urobilinogen < 2.0 Ur Leukocyte Esterase Neg Urine WBC (Auto) 2.0 Urine RBC (Auto) 3.0 U Epithel Cells (Auto) 34.0 H Urine Bacteria (Auto) 1+ Calcium Oxalate Crystal 3+ Urine Mucus 2+ - Radiology Data Radiology results: report reviewed (CT abdomen and pelvis, right upper quadrant ultrasound), image reviewed (CT abdomen and pelvis, right upper quadrant ultrasound) FINAL REPORT EXAM: CT ABDOMEN PELVIS W CON HISTORY: ruq, rlq, periumbilical abdominal pain TECHNIQUE: CT of the abdomen and pelvis was performed after the administration of intravenous contrast. Subsequently, CT of the abdomen and pelvis was performed in the delayed phase. Reconstructions were included in the coronal and sagittal planes. PRIORS: None. FINDINGS: Lower thorax: The lung bases are clear. The visualized portions of the heart are normal. Liver: The liver is normal in attenuation. No intrahepatic biliary duct dilation. No focal hepatic lesions. A large Viral lobe is seen. Contrast reflux is seen into the IVC and hepatic veins. Gallbladder/ biliary system: No cholelithiasis. The common bile duct appears nondilated. Spleen: No splenic lesions are seen. Pancreas: No pancreatic lesions are seen. No pancreatic duct dilation. Kidneys: No renal masses, cysts or hydronephrosis. Adrenal glands: No adrenal masses. Vasculature: The abdominal aorta is nondilated. Separate origins of the left gastric, common hepatic and splenic arteries are seen from the abdominal aorta. Lymph nodes: No enlarged lymph nodes are seen in the abdomen or pelvis. Bowel, mesentery, peritoneum: No bowel obstruction. No free fluid or free air. The appendix is normal. No colonic diverticulosis. There is wall thickening of the rectum and sigmoid colon. No surrounding inflammation is seen. A fatty lesion is seen within 1st portion of the duodenum likely representing a duodenal lipoma measuring 2.2 centimeters. Note that the cecum lies in the right upper quadrant. There is apparent thickening of the gastric pylorus. Urinary bladder: No filling defects are seen. Pelvis: There is a partially solid, partially cystic masslike lesion in the left hemipelvis measuring 7.5 centimeters transverse by 12.4 centimeters AP x 8.1 centimeters craniocaudal. This lesion exerts mass effect on the uterus. There is fluid within the endometrial canal. The right ovary appears normal. The left ovary is closely associated with the left pelvic mass. Abdominal wall: Nonspecific collateral vessels are seen along the anterior abdominal wall. Bones: Levo dextroscoliosis of the thoracolumbar spine is seen. Degenerative changes are seen within the spine. Bilateral L5 pars interarticularis defects are seen with grade 1 anterolisthesis of L5 on S1. IMPRESSION: 1. Large, heterogeneous left pelvic mass may arise from the left ovary. Recommend further evaluation with pelvic ultrasound. 2. Nonspecific wall thickening of the rectum and sigmoid colon. Recommend further evaluation with colonoscopy when feasible. 3. Duodenal lipoma. 4. Apparent wall thickening of the gastric pylorus. Consider further evaluation with EGD. 5. Contrast reflux into the IVC and hepatic veins can be associated with right heart strain. 6. Bilateral L5 pars interarticularis defects with grade 1 anterolisthesis of L5 on S1. Sandeep unexpected finding protocol was initiated. Transcribed By: MG Dictated By: DEE LYLES MD Electronically Authenticated By: DEE LYLES MD Signed Date/Time: 04/08/171606 DD/ 06 TD/TT: 04/08/171606 FINAL REPORT PROCEDURE: US ABDOMEN LIMITED TECHNIQUE: Real-time sonography was performed of the right upper quadrant with image documentation. CPT 77508 HISTORY: "gallbladder hurts" COMPARISON: No prior studies are available for comparison. FINDINGS: Pancreas is not well visualized due to bowel gas. Liver demonstrates slightly increased echotexture consistent with fatty infiltration. Gallbladder is well distended with normal outlines and normal wall thickness without any pericholecystic collections. A single freely mobile calculus measuring 2.5 centimeters is noted in the fundus. Common duct measures 3 millimeters in caliber. Right kidney measures 11 x 4 x 5 centimeters without calculi or hydronephrosis and demonstrates normal echotexture. Aorta measures 2.3 centimeters in the proximal portion in diameter.. IMPRESSION: Cholelithiasis without any sonographic evidence of cholecystitis. Fatty infiltration of liver. Transcribed By: [facility] [place] Dictated By: IWONA OROSCO Electronically Authenticated By: IWONA OROSCO Signed Date/Time: 04/08/171699 DD/ 99 TD/TT: 04/08/171699 - Differential Diagnosis symptomatic cholelithiasis, appendicitis, colitis, peptic ulcer disease Critical care attestation.: If time is entered above; I have spent that time in minutes in the direct care of this critically ill patient, excluding procedure time. ED Disposition Clinical Impression: Acute abdominal pain, Pelvic mass, Symptomatic cholelithiasis Disposition: TO HOME OR SELFCARE Is pt being admited?: No Does the pt Need Aspirin: No Condition: Stable Instructions: Abdominal Pain (ED) Additional Instructions: Return to the emergency department immediately should you develop worsening symptoms, fever, inability to tolerate food or liquid or any other concerns. Prescriptions: Dicyclomine [Bentyl] 20 mg PO QID #30 tablet HYDROcodone/APAP 5-325 [[place] 5/325] 1 - 2 each PO Q6HR PRN #14 tablet PRN Reason: Pain Referrals: PRIMARY CARE, [Primary Care Provider] - 3-5 Days AIMEE TEAGUE MD [Staff Physician] - 3-5 Days (Dr Teague is an [employer]. Please follow-up with him for further evaluation of your left pelvic mass) XUAN GALLARDO MD [Staff Physician] - 3-5 Days (Dr. Gallardo is a diesel powerplant mechanic. Please follow-up with him for further evaluation) Time of Disposition: 21:16
[2017-04-08] MEDS ORDERED: NACL ONE (18:15)
--- NOTE | 2017-04-08 20:10 | Cat Scan Report ---
FINAL REPORT EXAM: CT ABDOMEN PELVIS W CON HISTORY: ruq, rlq, periumbilical abdominal pain TECHNIQUE: CT of the abdomen and pelvis was performed after the administration of intravenous contrast. Subsequently, CT of the abdomen and pelvis was performed in the delayed phase. Reconstructions were included in the coronal and sagittal planes. PRIORS: None. FINDINGS: Lower thorax: The lung bases are clear. The visualized portions of the heart are normal. Liver: The liver is normal in attenuation. No intrahepatic biliary duct dilation. No focal hepatic lesions. A large Viral lobe is seen. Contrast reflux is seen into the IVC and hepatic veins. Gallbladder/ biliary system: No cholelithiasis. The common bile duct appears nondilated. Spleen: No splenic lesions are seen. Pancreas: No pancreatic lesions are seen. No pancreatic duct dilation. Kidneys: No renal masses, cysts or hydronephrosis. Adrenal glands: No adrenal masses. Vasculature: The abdominal aorta is nondilated. Separate origins of the left gastric, common hepatic and splenic arteries are seen from the abdominal aorta. Lymph nodes: No enlarged lymph nodes are seen in the abdomen or pelvis. Bowel, mesentery, peritoneum: No bowel obstruction. No free fluid or free air. The appendix is normal. No colonic diverticulosis. There is wall thickening of the rectum and sigmoid colon. No surrounding inflammation is seen. A fatty lesion is seen within 1st portion of the duodenum likely representing a duodenal lipoma measuring 2.2 centimeters. Note that the cecum lies in the right upper quadrant. There is apparent thickening of the gastric pylorus. Urinary bladder: No filling defects are seen. Pelvis: There is a partially solid, partially cystic masslike lesion in the left hemipelvis measuring 7.5 centimeters transverse by 12.4 centimeters AP x 8.1 centimeters craniocaudal. This lesion exerts mass effect on the uterus. There is fluid within the endometrial canal. The right ovary appears normal. The left ovary is closely associated with the left pelvic mass. Abdominal wall: Nonspecific collateral vessels are seen along the anterior abdominal wall. Bones: Levo dextroscoliosis of the thoracolumbar spine is seen. Degenerative changes are seen within the spine. Bilateral L5 pars interarticularis defects are seen with grade 1 anterolisthesis of L5 on S1. IMPRESSION: 1. Large, heterogeneous left pelvic mass may arise from the left ovary. Recommend further evaluation with pelvic ultrasound. 2. Nonspecific wall thickening of the rectum and sigmoid colon. Recommend further evaluation with colonoscopy when feasible. 3. Duodenal lipoma. 4. Apparent wall thickening of the gastric pylorus. Consider further evaluation with EGD. 5. Contrast reflux into the IVC and hepatic veins can be associated with right heart strain. 6. Bilateral L5 pars interarticularis defects with grade 1 anterolisthesis of L5 on S1. Sandeep unexpected finding protocol was initiated.
--- NOTE | 2017-04-08 21:03 | Ultrasound Report ---
FINAL REPORT PROCEDURE: US ABDOMEN LIMITED TECHNIQUE: Real-time sonography was performed of the right upper quadrant with image documentation. CPT 70155 HISTORY: "gallbladder hurts" COMPARISON: No prior studies are available for comparison. FINDINGS: Pancreas is not well visualized due to bowel gas. Liver demonstrates slightly increased echotexture consistent with fatty infiltration. Gallbladder is well distended with normal outlines and normal wall thickness without any pericholecystic collections. A single freely mobile calculus measuring 2.5 centimeters is noted in the fundus. Common duct measures 3 millimeters in caliber. Right kidney measures 11 x 4 x 5 centimeters without calculi or hydronephrosis and demonstrates normal echotexture. Aorta measures 2.3 centimeters in the proximal portion in diameter.. IMPRESSION: Cholelithiasis without any sonographic evidence of cholecystitis. Fatty infiltration of liver.
[2017-04-08 22:12] VITALS: BP 128/84
== END 2017-04-08 22:19 | disposition home or self-care (01) ==
LOC: ED 10:58
DX: K80.20 Calculus of gallbladder without cholecystitis without obstruction (principal); R19.00 Intra-abdominal and pelvic swelling, mass and lump, unspecified site; I10 Essential (primary) hypertension
CPT/HCPCS: 36415; 74177; 76705; 80053; 81001; 83690; 85025; 96372; 96374; 96375; 99284; J0500; J1885; J2405; J3010; Q9967

== ENCOUNTER 2017-07-19 04:44 | Emergency (ER) | payer BC ==
[2017-07-19 05:27] LABS: Basophils # (Auto) 0.1 K/mm3 (0.0-0.1); Basophils % (Auto) 0.6 % (0.0-1.8); Eosinophils # (Auto) 0.2 K/mm3 (0.0-0.4); Eosinophils % (Auto) 2.7 % (0.0-4.3); Hematocrit 36.9 % (30.3-42.9); Hemoglobin 12.4 gm/dl (10.1-14.3); Lymphocytes # (Auto) 1.6 K/mm3 (1.2-5.4); Lymphocytes % (Auto) 18.1 % (13.4-35.0); Mean Corpuscular HGB Conc 34 % (30-34); Mean Corpuscular Hemoglobin 32 pg (28-32); Mean Corpuscular Volume 94 fl (79-97); Monocytes # (Auto) 0.7 K/mm3 (0.0-0.8); Monocytes % (Auto) 7.8 % (0.0-7.3); Platelet Count 251 K/mm3 (140-440); Red Blood Count 3.93 M/mm3 (3.65-5.03); Red Cell Distribution Width 14.9 % (13.2-15.2)
[2017-07-19 06:22] LABS: Alanine Aminotransferase 13 units/L (7-56); BUN/Creatinine Ratio 18; Blood Urea Nitrogen 9 mg/dL (7-17); Calcium 8.7 mg/dL (8.4-10.2); Hemolysis Index 2
[2017-07-19 07:59] LABS: Bacteria,Urine 1+ /HPF (Negative); Bilirubin,Urine NEG (Negative); Blood,Urine NEG (Negative); Color,Urine Yellow (Yellow); Mucus,Urine 2+ /HPF; Protein,Urine <15 mg/dL mg/dL (Negative); Urobilinogen,Urine < 2.0 mg/dL (<2.0)
[2017-07-19] MEDS ORDERED: NORCO 7.5/325 PO ONE (12:07)
[2017-07-19] MEDS ORDERED: ZOFRAN ODT PO ONE (12:07)
[2017-07-19] MEDS ORDERED: MOTRIN PO ONE (12:07)
--- NOTE | 2017-07-19 12:09 | Emergency Department Report ---
Blank Doc - Documentation Documentation: Patient is a 46-year-old female presenting with 2 days of abdominal pain. Patient states several months ago she was diagnosed with gallstones she also has a ovarian mass that is potentially obstructing her bladder. Patient states she has nausea pain is worse over the last 24 hours. Patient will have ultrasound to rule out cholecystitis and hydronephrosis. Patient given oral pain medicines and nausea medicines here in the department. Patient will be reassessed by the [facility]
[2017-07-19 12:11] VITALS: BP 165/99
--- NOTE | 2017-07-19 13:28 | Ultrasound Report ---
ULTRASOUND ABDOMEN COMPLETE: TECHNIQUE: Transabdominal ultrasound with color Doppler interrogation. HISTORY: Right upper quadrant abdominal pain. COMPARISON: Ultrasound abdomen limited and CT abdomen and pelvis dated 04/08/17. FINDINGS: LIVER: Normal. BILIARY SYSTEM: The gallbladder appears mildly dilated. At least one large gallstone measures up to 2.6 cm. A small amount of sludge is also identified within the gallbladder. No gallbladder wall thickening or obvious surrounding fluid. The CBD measures 3 mm. PANCREAS: Obscured by bowel gas. SPLEEN: There is a small splenule anterior to the left kidney measuring 5.2 cm in diameter. Previous splenectomy changes are suspected, correlate with history. KIDNEYS: Normal. AORTA/IVC: Obscured. ASCITES: None. IMPRESSION: Cholelithiasis. The gallbladder appears mildly dilated. Correlate for biliary symptoms.
--- NOTE | 2017-07-19 13:57 | Emergency Department Report ---
ED Abdominal Pain HPI - General Chief Complaint: Abdominal Pain Stated Complaint: ABDOMINAL PAIN Time Seen by Provider: 07/19/17 11:59 Source: patient Mode of arrival: Ambulatory Limitations: No Limitations - History of Present Illness MD Complaint: abdominal pain -: Gradual Location: LUQ Radiation: none Migration to: no migration, LUQ Severity: moderate Severity scale (0 -10): 8 - Related Data Previous Rx's Medication Instructions Recorded Last Taken Type oxyCODONE /ACETAMINOPHEN [Percocet 1 tab PO Q6HR PRN #10 tablet 10/02/15 Unknown Rx 5/325] Amlodipine Besylate [Norvasc] 2.5 mg PO DAILY #30 tab 10/21/16 Unknown Rx Ibuprofen [Motrin 800 MG tab] 800 mg PO Q8HR PRN #30 tablet 10/21/16 Unknown Rx Ondansetron [Zofran Odt] 4 mg PO Q6HR #20 tab.rapdis 10/21/16 Unknown Rx oxyCODONE /ACETAMINOPHEN [Percocet 1 tab PO Q4HR #20 tab 10/21/16 Unknown Rx 5/325] Dicyclomine [Bentyl] 20 mg PO QID #30 tablet 04/08/17 Unknown Rx Docusate Sodium [Colace] 100 mg PO BID PRN #30 capsule 07/19/17 Unknown Rx HYDROcodone/APAP 5-325 [Magalia 1 - 2 each PO Q6HR PRN #14 tablet 07/19/17 Unknown Rx 5-325 mg TAB] Ondansetron [Zofran ODT TAB] 8 mg PO Q8HR #30 tab.rapdis 07/19/17 Unknown Rx Sulfamethoxazole/Trimethoprim 1 each PO BID #14 tablet 07/19/17 Unknown Rx [Bactrim DS TAB] Allergies Allergy/AdvReac Type Severity Reaction Status Date / Time No Known Allergies Allergy Verified 10/20/16 11:46 ED Review of Systems ROS: Stated complaint: ABDOMINAL PAIN Other details as noted in HPI Constitutional: denies: chills, fever Eyes: denies: eye pain, eye discharge, vision change ENT: denies: ear pain, throat pain Respiratory: denies: cough, shortness of breath, wheezing Cardiovascular: denies: chest pain, palpitations Endocrine: no symptoms reported Gastrointestinal: denies: abdominal pain, nausea, diarrhea Genitourinary: denies: urgency, dysuria, discharge Musculoskeletal: denies: back pain, joint swelling, arthralgia Skin: denies: rash, lesions Neurological: denies: headache, weakness, paresthesias Psychiatric: denies: anxiety, depression Hematological/Lymphatic: denies: easy bleeding, easy bruising ED Past Medical Hx - Past Medical History Previous Medical History?: Yes Hx Hypertension: Yes Additional medical history: Gallstones, L ovarian cyst/mass-noncancerous - Surgical History Past Surgical History?: Yes Additional Surgical History: splenectomy. tubal ligation. hernia repair - Social History Smoking Status: Never Smoker Substance Use Type: Alcohol - Medications Home Medications: Home Medications Medication Instructions Recorded Confirmed Last Taken Type oxyCODONE /ACETAMINOPHEN [Percocet 1 tab PO Q6HR PRN #10 tablet 10/02/15 Unknown Rx 5/325] Amlodipine Besylate [Norvasc] 2.5 mg PO DAILY #30 tab 10/21/16 Unknown Rx Ibuprofen [Motrin 800 MG tab] 800 mg PO Q8HR PRN #30 tablet 10/21/16 Unknown Rx Ondansetron [Zofran Odt] 4 mg PO Q6HR #20 tab.rapdis 10/21/16 Unknown Rx oxyCODONE /ACETAMINOPHEN [Percocet 1 tab PO Q4HR #20 tab 10/21/16 Unknown Rx 5/325] Dicyclomine [Bentyl] 20 mg PO QID #30 tablet 04/08/17 Unknown Rx Docusate Sodium [Colace] 100 mg PO BID PRN #30 capsule 07/19/17 Unknown Rx HYDROcodone/APAP 5-325 [Magalia 1 - 2 each PO Q6HR PRN #14 tablet 07/19/17 Unknown Rx 5-325 mg TAB] Ondansetron [Zofran ODT TAB] 8 mg PO Q8HR #30 tab.rapdis 07/19/17 Unknown Rx Sulfamethoxazole/Trimethoprim 1 each PO BID #14 tablet 07/19/17 Unknown Rx [Bactrim DS TAB] ED Physical Exam - General Limitations: No Limitations General appearance: alert, in no apparent distress - Head Head exam: Present: atraumatic, normocephalic - Eye Eye exam: Present: normal appearance - ENT ENT exam: Present: mucous membranes moist - Neck Neck exam: Present: normal inspection - Respiratory Respiratory exam: Present: normal lung sounds bilaterally. Absent: respiratory distress - Cardiovascular Cardiovascular Exam: Present: regular rate, normal rhythm. Absent: systolic murmur, diastolic murmur, rubs, gallop - GI/Abdominal GI/Abdominal exam: Present: soft, normal bowel sounds - Extremities Exam Extremities exam: Present: normal inspection - Back Exam Back exam: Present: normal inspection - Neurological Exam Neurological exam: Present: alert, oriented X3 - Psychiatric Psychiatric exam: Present: normal affect, normal mood - Skin Skin exam: Present: warm, dry, intact, normal color. Absent: rash ED Course Vital Signs 07/19/17 07/19/17 04:54 12:10 Temperature 98.2 F 98.2 F Pulse Rate 73 57 L Respiratory 18 16 Rate Blood Pressure 165/96 Blood Pressure 165/99 [Right] O2 Sat by Pulse 98 100 Oximetry ED Medical Decision Making - Lab Data Result diagrams: 07/19/17 05:11 07/19/17 05:11 - Radiology Data Radiology results: report reviewed, image reviewed FINDINGS: LIVER: Normal. BILIARY SYSTEM: The gallbladder appears mildly dilated. At least one large gallstone measures up to 2.6 cm. A small amount of sludge is also identified within the gallbladder. No gallbladder wall thickening or obvious surrounding fluid. The CBD measures 3 mm. PANCREAS: Obscured by bowel gas. SPLEEN: There is a small splenule anterior to the left kidney measuring 5.2 cm in diameter. Previous splenectomy changes are suspected, correlate with history. KIDNEYS: Normal. AORTA/IVC: Obscured. ASCITES: None. IMPRESSION: Cholelithiasis. The gallbladder appears mildly dilated. Correlate for biliary symptoms. Transcribed By: TTR Dictated By: LATOSHA WALKER JR, MD Electronically Authenticated By: LATOSHA WALKER JR, MD Signed Date/Time: 07/19/17 1321 Critical care attestation.: If time is entered above; I have spent that time in minutes in the direct care of this critically ill patient, excluding procedure time. ED Disposition Clinical Impression: Cholelithiasis Qualifiers: Cholelithiasis location: gallbladder Cholecystitis presence: without cholecystitis Biliary obstruction: without biliary obstruction Qualified Code(s) : K80.20 - Calculus of gallbladder without cholecystitis without obstruction UTI (urinary tract infection) Qualifiers: Urinary tract infection type: acute cystitis Hematuria presence: without hematuria Qualified Code(s): N30.00 - Acute cystitis without hematuria Disposition: DC- TO HOME OR SELFCARE Is pt being admited?: No Does the pt Need Aspirin: No Condition: Stable Instructions: Abdominal Pain (ED), Biliary Colic (ED) Additional Instructions: Make sure to follow up with the primary care physician as discussed. Follow-up with general surgeon as referred. He also been given some referrals for senior property manager to follow up Take all your medications as you've been prescribed. If you have any worsening symptoms or develop new symptoms please return to ED immediately. Prescriptions: Docusate Sodium [Colace] 100 mg PO BID PRN #30 capsule PRN Reason: Constipation HYDROcodone/APAP 5-325 [Magalia 5-325 mg TAB] 1 - 2 each PO Q6HR PRN #14 tablet PRN Reason: Pain Ondansetron [Zofran ODT TAB] 8 mg PO Q8HR #30 tab.rapdis Sulfamethoxazole/Trimethoprim [Bactrim DS TAB] 1 each PO BID #14 tablet Referrals: PRIMARY CARE, [Primary Care Provider] - 3-5 Days [facility] [Provider Group] - 3-5 Days [facility] [Provider Group] - 3-5 Days [facility] [Provider Group] - 3-5 Days Forms: Accompanied Note, Work/School Release Form(ED) Time of Disposition: 14:34
== END 2017-07-19 14:43 | disposition home or self-care (01) ==
LOC: ED 04:44
DX: K80.20 Calculus of gallbladder without cholecystitis without obstruction (principal); N30.00 Acute cystitis without hematuria
CPT/HCPCS: 36415; 76700; 80053; 81001; 85025; Q0162

== ENCOUNTER 2017-10-27 13:17 | Outpatient (CLI) | payer BC | END 2017-10-27 13:18 | disposition home or self-care (01) | LOC: WOUND 13:17 | PROVIDERS: ATTEND Surgery | DX: L02.211 Cutaneous abscess of abdominal wall (principal); I10 Essential (primary) hypertension; Z90.710 Acquired absence of both cervix and uterus; Z87.891 Personal history of nicotine dependence | CPT/HCPCS: 99213; G0463 ==

== ENCOUNTER 2017-11-10 10:46 | Outpatient (CLI) | payer BC ==
[2017-11-10] MEDS ORDERED: XYLOCAINE TOPICAL 4% TP ONE (15:45)
== END 2017-11-10 10:47 | disposition home or self-care (01) ==
LOC: WOUND 10:46
PROVIDERS: ATTEND Surgery
DX: L02.211 Cutaneous abscess of abdominal wall (principal); I10 Essential (primary) hypertension; Z90.710 Acquired absence of both cervix and uterus; Z87.891 Personal history of nicotine dependence
CPT/HCPCS: 99214; G0463

== ENCOUNTER 2017-11-17 08:41 | Outpatient (CLI) | payer BC | END 2017-11-17 08:42 | disposition home or self-care (01) | LOC: WOUND 08:41 | PROVIDERS: ATTEND Surgery | DX: S31.103D Unspecified open wound of abdominal wall, right lower quadrant without penetration into peritoneal cavity, subsequent encounter (principal); I10 Essential (primary) hypertension; Z90.710 Acquired absence of both cervix and uterus; Z87.891 Personal history of nicotine dependence; X58.XXXD Exposure to other specified factors, subsequent encounter | CPT/HCPCS: 99214; G0463 ==